=== PATIENT | male | born 1955 | race Caucasian/White ===

== ENCOUNTER 2016-05-08 13:56 | Emergency (ER) | payer SELFPAY ==
[2016-05-08] MEDS ORDERED: NS 0.9% 1000 ML* 1,000 ML IV SCH (14:15)
[2016-05-08 14:25] LABS: Hematocrit 43 % (42-52); Hemoglobin 14.3 g/dl (14.0-18.0); Mean Corpuscular HGB Conc 33 g/dl (31-36); Mean Corpuscular Hemoglobin 30 pg (27-31); Mean Corpuscular Volume 90 fL (80-94); Mean Platelet Volume 9 um3 (7.4-10.4); Red Blood Count 4.83 10^6/ul (4.0-5.4); Red Cell Distribution Width 14 % (10.5-15); White Blood Count 8.6 10^3/ul (3.5-10.8)
[2016-05-08 14:30] VITALS: BP 175/82
[2016-05-08 14:40] LABS: Albumin 4.3 g/dL (3.2-5.2); BUN/Creatinine Ratio 17.6 (8-20); Calcium 9.1 mg/dL (8.6-10.3); EGFR African American 95.8 (>60); EGFR Non-African American 74.5 (>60); Globulin 3.1 g/dL (2-4); Potassium 4.3 mmol/L (3.5-5.0); Total Bilirubin 0.5 mg/dL (0.2-1.0); Total Protein 7.4 g/dL (6.4-8.9)
--- NOTE | 2016-05-08 14:59 | RAD ---
INDICATION: Head injury. COMPARISON: There are no prior studies available for comparison. TECHNIQUE: Contiguous axial sections of the brain were obtained from the skull base to the vertex without contrast. FINDINGS: The ventricles, cisterns and sulci are within normal limits. No significant focal abnormality or mass effect is seen. There is no evidence for hemorrhage. There is focal soft tissue swelling and a hematoma anterior to the left frontal bone measuring 4.9 x 0.8 cm in size. No fracture is seen. There is mildly coastal thickening within the maxillary, ethmoid and sphenoid sinuses consistent with chronic sinusitis. The mastoid air cells appear clear. IMPRESSION: NO EVIDENCE FOR ACUTE INTRACRANIAL ABNORMALITY.
--- NOTE | 2016-05-08 15:06 | RAD ---
Indication: Neck injury after fall CT of the cervical spine was obtained in the axial plane. Sagittal and coronal reconstructed images were obtained. The skull base demonstrates mastoid air cells to be unremarkable. No skull fracture is noted. Atlantoaxial degenerative changes are noted. No fracture is noted. At C2-C3, C3-C4, C4-C5 no disc protrusion is noted. No fracture is identified. At C5-C6 spondylitic ridge flattens the thecal sac. No central or foraminal stenosis is noted. At C6-C7 degenerative disc disease is noted. No central foraminal stenosis is noted. At C7-T1 and T1-T2 the disc protrusion is identified. The lung apices are grossly unremarkable. IMPRESSION: MINIMAL DEGENERATIVE DISC DISEASE AT C5-C6 AND C6-C7 WITHOUT EVIDENCE OF FRACTURE.
[2016-05-08 15:36] LABS: Urine Bacteria Absent (Absent); Urine Bilirubin Negative (Negative); Urine Glucose Negative (Negative); Urine Nitrite Negative (Negative)
--- NOTE | 2016-05-08 15:52 | ED ---
Nando Davies Billy, scribed for Sky Bates MD on 05/08/16 at 1414 . Head Injury - HPI Summary HPI Summary: Patient is a 60 year-old male coming to [facility] for evaluation of a head injury. He states he fell off of a ladder at a height of approximately 6-8 feet at 1200 today. He hit the top and left forehead on the ground. Pain severity 5/10. He also reports right-sided neck pain, c-collar is in place. Denies any visual changes or weakness in the extremities. He took ibuprofen for pain. He has no other complaints at this time. Denies anticoagulant therapy. - History Of Current Complaint Chief Complaint: EDHeadInjury Stated Complaint: FELL OFF LADDER-8FT Time Seen by Provider: 05/08/16 14:12 Hx Obtained From: Patient Mechanism Of Injury: Fall From Height Of: - 6-8 feet Onset/Duration: Started Hours Ago Onset of Pain: Immediate Severity Currently: Moderate Severity Initially: Moderate Pain Intensity: 5 Pain Scale Used: 0-10 Numeric Location of Head Injury: Other: - top and left forehead Aggravating Factor(s): Other: - none Alleviating Factor(s): Other: - none - Allergies/Home Medications Allergies/Adverse Reactions: Allergies Allergy/AdvReac Type Severity Reaction Status Date / Time No Known Allergies Allergy Verified 05/08/16 13:58 PMH/Surg Hx/FS Hx/Imm Hx Endocrine/Hematology History: Denies: Hx Diabetes Cardiovascular History: Reports: Hx Coronary Artery Disease, Hx Hypercholesterolemia, Hx Hypertension - TAKES MEDICATION FOR IT, Hx Myocardial Infarction Denies: Hx Angina, Hx Pacemaker/ICD Respiratory History: Denies: Hx Asthma, Hx Chronic Obstructive Pulmonary Disease (COPD) History: Denies: Hx Renal Disease Musculoskeletal History: Reports: Hx Back Problems - bulging disks, Other Musculoskeletal History - rt foot injury, crush Sensory History: Denies: Hx Hearing Aid Psychiatric History: Denies: Hx Panic Disorder - Surgical History Surgery Procedure, Year, and Place: 01/18/13 QUAD.BYPASS AT [facility]. RT FOOT SURGERY FROM TRAUMA-. LT FINGER Infectious Disease History: No Infectious Disease History: Denies: Traveled Outside the [place] in Last 30 Days - Family History Known Family History: Positive: Cardiac Disease - Social History Alcohol Use: Occasionally Substance Use Type: Reports: None Smoking Status (MU): Former Smoker Type: Cigarettes Length of Time of Smoking/Using Tobacco: 45 years Have You Smoked in the Last Year: No Review of Systems Negative: Fever Negative: Photophobia, Blurred Vision, Diplopia Positive: Other - head and neck pain Positive: Other - head abrasion Negative: Weakness All Other Systems Reviewed And Are Negative: Yes Physical Exam Triage Information Reviewed: Yes Vital Signs On Initial Exam: Initial Vitals Temp Pulse Resp BP Pulse Ox 96.5 F 63 18 168/78 100 05/08/16 13:58 05/08/16 13:58 05/08/16 13:58 05/08/16 13:58 05/08/16 13:58 Vital Signs Reviewed: Yes Appearance: Positive: Well-Appearing, No Pain Distress Skin: Positive: Warm, Skin Color Reflects Adequate Perfusion, Dry Head/Face: Positive: Other - Swelling and abrasions to the top of the head and above left eyebrow. Eyes: Positive: EOMI, WILLIAMS ENT: Positive: Normal ENT inspection Neck: Positive: Other: - C-collar in place Respiratory/Lung Sounds: Positive: Clear to Auscultation, Breath Sounds Present Cardiovascular: Positive: RRR Abdomen Description: Positive: Nontender, Soft Bowel Sounds: Positive: Present Musculoskeletal: Positive: Normal, Strength/ROM Intact Neurological: Positive: Sensory/Motor Intact, Alert, Oriented to Person Place, Time Psychiatric: Positive: Affect/Mood Appropriate AVPU Assessment: Alert Diagnostics - Vital Signs Vital Signs Temp Pulse Resp BP Pulse Ox 05/08/16 13:58 96.5 F 63 18 168/78 100 - Laboratory Lab Results: Lab Results 05/08/16 05/08/16 05/08/16 Range/Units 14:15 14:15 14:15 WBC 8.6 (3.5-10.8) 10^3/ul RBC 4.83 (4.0-5.4) 10^6/ul Hgb 14.3 (14.0-18.0) g/dl Hct 43 (42-52) % MCV 90 (80-94) fL MCH 30 (27-31) pg MCHC 33 (31-36) g/dl RDW 14 (10.5-15) % Plt Count 222 (150-450) 10^3/ul MPV 9 (7.4-10.4) um3 Neut % (Auto) 69.1 (38-83) % Lymph % (Auto) 22.8 L (25-47) % [place] % (Auto) 5.4 (1-9) % Eos % (Auto) 1.6 (0-6) % Baso % (Auto) 1.1 (0-2) % Absolute Neuts (auto) 6.0 (1.5-7.7) 10^3/ul Absolute Lymphs (auto) 2.0 (1.0-4.8) 10^3/ul Absolute Monos (auto) 0.5 (0-0.8) 10^3/ul Absolute Eos (auto) 0.1 (0-0.6) 10^3/ul Absolute Basos (auto) 0.1 (0-0.2) 10^3/ul Absolute Nucleated RBC 0 10^3/ul Nucleated RBC % 0 INR (Anticoag Therapy) 0.97 (0.89-1.11) APTT 30.4 (26.0-36.3) seconds Sodium 132 L (133-145) mmol/L Potassium 4.3 (3.5-5.0) mmol/L Chloride 102 (101-111) mmol/L Carbon Dioxide 23 (22-32) mmol/L Anion Gap 7 (2-11) mmol/L BUN 18 (6-24) mg/dL Creatinine 1.02 (0.67-1.17) mg/dL Est GFR ( Amer) 95.8 (>60) Est GFR (Non-Af Amer) 74.5 (>60) BUN/Creatinine Ratio 17.6 (8-20) Glucose 100 (70-100) mg/dL Calcium 9.1 (8.6-10.3) mg/dL Total Bilirubin 0.50 (0.2-1.0) mg/dL AST 18 (13-39) U/L ALT 20 (7-52) U/L Alkaline Phosphatase 78 (34-104) U/L Total Protein 7.4 (6.4-8.9) g/dL Albumin 4.3 (3.2-5.2) g/dL Globulin 3.1 (2-4) g/dL Albumin/Globulin Ratio 1.4 (1-3) Urine Color Urine Appearance Urine pH (5-9) Ur Specific [place] (1.010-1.030) Urine Protein (Negative) Urine Ketones (Negative) Urine Blood (Negative) Urine Nitrate (Negative) Urine Bilirubin (Negative) Urine Urobilinogen (Negative) Ur Leukocyte Esterase (Negative) Urine WBC (Auto) (Absent) Urine RBC (Auto) (Absent) Urine Bacteria (Absent) Urine Glucose (Negative) 05/08/16 Range/Units 15:20 WBC (3.5-10.8) 10^3/ul RBC (4.0-5.4) 10^6/ul Hgb (14.0-18.0) g/dl Hct (42-52) % MCV (80-94) fL MCH (27-31) pg MCHC (31-36) g/dl RDW (10.5-15) % Plt Count (150-450) 10^3/ul MPV (7.4-10.4) um3 Neut % (Auto) (38-83) % Lymph % (Auto) (25-47) % [place] % (Auto) (1-9) % Eos % (Auto) (0-6) % Baso % (Auto) (0-2) % Absolute Neuts (auto) (1.5-7.7) 10^3/ul Absolute Lymphs (auto) (1.0-4.8) 10^3/ul Absolute Monos (auto) (0-0.8) 10^3/ul Absolute Eos (auto) (0-0.6) 10^3/ul Absolute Basos (auto) (0-0.2) 10^3/ul Absolute Nucleated RBC 10^3/ul Nucleated RBC % INR (Anticoag Therapy) (0.89-1.11) APTT (26.0-36.3) seconds Sodium (133-145) mmol/L Potassium (3.5-5.0) mmol/L Chloride (101-111) mmol/L Carbon Dioxide (22-32) mmol/L Anion Gap (2-11) mmol/L BUN (6-24) mg/dL Creatinine (0.67-1.17) mg/dL Est GFR ( Amer) (>60) Est GFR (Non-Af Amer) (>60) BUN/Creatinine Ratio (8-20) Glucose (70-100) mg/dL Calcium (8.6-10.3) mg/dL Total Bilirubin (0.2-1.0) mg/dL AST (13-39) U/L ALT (7-52) U/L Alkaline Phosphatase (34-104) U/L Total Protein (6.4-8.9) g/dL Albumin (3.2-5.2) g/dL Globulin (2-4) g/dL Albumin/Globulin Ratio (1-3) Urine Color Straw Urine Appearance Clear Urine pH 5.0 (5-9) Ur Specific [place] 1.011 (1.010-1.030) Urine Protein Negative (Negative) Urine Ketones Negative (Negative) Urine Blood Negative (Negative) Urine Nitrate Negative (Negative) Urine Bilirubin Negative (Negative) Urine Urobilinogen Negative (Negative) Ur Leukocyte Esterase 1+ H (Negative) Urine WBC (Auto) Trace(0-5/hpf) (Absent) Urine RBC (Auto) Absent (Absent) Urine Bacteria Absent (Absent) Urine Glucose Negative (Negative) Result Diagrams: 05/08/16 14:15 05/08/16 14:15 Lab Statement: Any lab studies that have been ordered have been reviewed, and results considered in the medical decision making process. - CT c-spine CT Interpretation Completed By: Radiologist - MINIMAL DEGENERATIVE DISC DISEASE AT C5-C6 AND C6-C7 WITHOUT EVIDENCE OF FRACTURE. brain CT Interpretation: No Acute Changes CT Interpretation Completed By: Radiologist Re-Evaluation - Re-Evaluation First Eval Re-Evaluation Time: 15:32 Comment: Labs and imaging reviewed and discussed. Head Injury Course/Dx Assessment/Plan: WELL IN ED. DISCUSSED RESULTS WITH PATIENT. DISCHARGE HOME STABLE. - Diagnoses Provider Diagnoses: Head injury, Cervical strain, Sinusitis Discharge - Discharge Plan Condition: Stable Disposition: HOME Prescriptions: Amoxicillin/Clavulanate TAB* [Augmentin TAB 875*] 875 mg PO BID #20 tab HYDROcodone/ACETAMIN 5-325 MG* [Salix 5-325 TAB*] 1 tab PO Q4H PRN #20 tab MDD 6 PRN Reason: Pain Ondansetron ODT TAB* [Zofran 4 MG Odt TAB*] 4 mg PO Q6H PRN #10 tab.odt PRN Reason: Nausea Patient Education Materials: Head Injury (ED), Cervical Sprain (ED), Sinusitis (ED) Referrals: Jose Lopez MD [Primary Care Provider] - Additional Instructions: FOLLOW UP WITH YOUR DOCTOR. RETURN TO THE EMERGENCY DEPARTMENT FOR ANY WORSENING OF YOUR CONDITION; WEAKNESS , NUMBNESS, DIFFICULTY WITH SPEECH OR VISION OR QUESTIONS OR CONCERNS. The documentation as recorded by the Nando cavanaugh Billy accurately reflects the service I personally performed and the decisions made by me, Sky Bates MD.
== END 2016-05-08 16:08 | disposition home or self-care (01) ==
LOC: ED 13:56
DX: S09.90XA Unspecified injury of head, initial encounter (principal); S13.9XXA Sprain of joints and ligaments of unspecified parts of neck, initial encounter; J32.9 Chronic sinusitis, unspecified; W11.XXXA Fall on and from ladder, initial encounter; Y92.9 Unspecified place or not applicable; I25.10 Atherosclerotic heart disease of native coronary artery without angina pectoris; E78.00 Pure hypercholesterolemia, unspecified; I10 Essential (primary) hypertension; I25.2 Old myocardial infarction; Z87.891 Personal history of nicotine dependence; M50.322 Other cervical disc degeneration at C5-C6 level
CPT/HCPCS: 36415; 70450; 72125; 80053; 81003; 81015; 85025; 85610; 85730; 87086; 96360; 99282

== ENCOUNTER 2017-04-26 10:26 | Emergency (ER) | payer BC ==
--- NOTE | 2017-04-26 11:18 | RAD ---
HISTORY: Palpitation COMPARISONS: March 06, 2013 VIEWS: 1: frontal portable view of the chest at 11:00 AM FINDINGS: LINES AND TUBES: None. CARDIOMEDIASTINAL SILHOUETTE: The cardiomediastinal silhouette is normal for portable technique. PLEURA: The costophrenic angles are sharp. No pleural abnormalities are noted. LUNG PARENCHYMA: The lungs are clear. ABDOMEN: The upper abdomen is clear. There is no subphrenic gas. BONES AND SOFT TISSUES: The patient is status post median sternotomy. IMPRESSION: NO ACTIVE CARDIOPULMONARY DISEASE.
[2017-04-26 11:24] LABS: ABS Basophils 0.1 10^3/ul (0-0.2); ABS Eosinophils 0.2 10^3/ul (0-0.6); ABS Lymphocytes 2.3 10^3/ul (1.0-4.8); ABS Monocytes 0.3 10^3/ul (0-0.8); ABS Neutrophils 4.2 10^3/ul (1.5-7.7); ABS Nucleated RBC 0 10^3/ul; Eosinophil % 3.4 % (0-6); Hematocrit 42 % (42-52); Hemoglobin 14.3 g/dl (14.0-18.0); Lymphocyte % 31.8 % (25-47); Mean Corpuscular HGB Conc 34 g/dl (31-36); Mean Corpuscular Hemoglobin 30 pg (27-31); Mean Corpuscular Volume 89 fL (80-94); Mean Platelet Volume 8 um3 (7.4-10.4); Nucleated Red Blood Cells % 0.1; Platelet Count 226 10^3/ul (150-450); Red Blood Count 4.73 10^6/ul (4.0-5.4); Red Cell Distribution Width 14 % (10.5-15); White Blood Count 7.2 10^3/ul (3.5-10.8)
[2017-04-26 11:31] LABS: INR 0.94 (0.77-1.02)
[2017-04-26 12:02] LABS: EGFR Non-African American 78.7 (>60)
[2017-04-26 14:05] LABS: Urine Appearance Clear; Urine Blood Negative (Negative); Urine Color Straw; Urine Ketones Negative (Negative); Urine Protein Negative (Negative); Urine Specific Gravity 1.011 (1.010-1.030); Urine Urobilinogen Negative (Negative)
[2017-04-26 15:10] VITALS: BP 116/65
--- NOTE | 2017-04-27 16:14 | ED ---
Delano Davies Angela, scribed for Nilton Patel MD on 04/26/17 at 1050 . Palpitations / Dysrhythmia - HPI Summary HPI Summary: This pt is a 61 y/o male presenting [place] [facility] c/o palpitations, heart burn, and nausea since this morning at 03:00. Pt reports he woke up at 03:00 with heart burn and palpitations. He describes palpitations as pounding, irregular, and fluttering. Pt additionally notes some SOB. Denies chest pain. Pt started smoking again. He is followed up by Dr. Wright. Pt had quadruple bypass in 2012 in [place]. He states that prior to his quad, pt was asymptomatic and only felt "odd." - History of Current Complaint Chief Complaint: EDChestPainROMI Time Seen by Provider: 04/26/17 10:34 Hx Obtained From: Patient Onset/Duration: Lasting Hours, Still Present Timing: Constant Severity Currently: Moderate Character: Pounding, Fluttering Aggravating: Nothing Alleviating: Nothing Associated Signs & Symptoms: Shortness of Breath, Nausea - Allergy/Home Medications Allergies/Adverse Reactions: Allergies Allergy/AdvReac Type Severity Reaction Status Date / Time No Known Allergies Allergy Verified 05/08/16 13:58 Home Medications: Home Medications Aspirin EC Low Dose* [Ecotrin EC Low Dose 81 MG*] 81 mg PO DAILY 04/26/17 [ History Confirmed 04/26/17] Ibuprofen TAB* [Advil TAB*] 400 - 600 mg PO DAILY PRN 04/26/17 [History Confirmed 04/26/17] Magnesium Oxide [Magnesium] 500 mg PO DAILY 04/26/17 [History Confirmed 04/26/17 ] PMH/Surg Hx/FS Hx/Imm Hx Endocrine/Hematology History: Denies: Hx Diabetes Cardiovascular History: Reports: Hx Coronary Artery Disease, Hx Embolism - angioplasty right leg, Hx Hypercholesterolemia, Hx Hypertension - TAKES MEDICATION FOR IT, Hx Myocardial Infarction, Other Cardiovascular Problems/ Disorders - Hx angioplasty right leg Denies: Hx Angina, Hx Pacemaker/ICD Respiratory History: Denies: Hx Asthma, Hx Chronic Obstructive Pulmonary Disease (COPD) History: Denies: Hx Renal Disease Musculoskeletal History: Reports: Hx Back Problems - bulging disks, Other Musculoskeletal History - rt foot injury, crush Sensory History: Denies: Hx Hearing Aid Neurological History: Reports: Hx Headaches Psychiatric History: Denies: Hx Panic Disorder - Surgical History Surgery Procedure, Year, and Place: 01/18/13 QUAD.BYPASS AT [facility] 2013. RT FOOT SURGERY FROM TRAUMA-. LT FINGER. right leg angioplasty 2014 Infectious Disease History: No Infectious Disease History: Denies: Traveled Outside the [place] in Last 30 Days - Family History Known Family History: Positive: Cardiac Disease, Diabetes Family History: Father: Leukemia - Social History Alcohol Use: Occasionally Substance Use Type: Reports: None Smoking Status (MU): Heavy Every Day Tobacco Smoker Type: Cigarettes Length of Time of Smoking/Using Tobacco: 45 years Have You Smoked in the Last Year: Yes Review of Systems Negative: Fever, Chills Positive: Palpitations. Negative: Chest Pain Positive: Shortness Of Breath Gastrointestinal: Other - heart burn Positive: Nausea Skin: Negative Neurological: Negative All Other Systems Reviewed And Are Negative: Yes Physical Exam - Summary Physical Exam Summary: VITAL SIGNS: Reviewed. GENERAL: Patient is a well-developed and nourished male who is lying comfortable in the stretcher. Patient is not in any acute respiratory distress. HEAD AND FACE: No signs of trauma. No ecchymosis, hematomas or skull depressions. No sinus tenderness. EYES: PERRLA, EOMI x 2, No injected conjunctiva, no nystagmus. EARS: Hearing grossly intact. Ear canals and tympanic membranes are within normal limits. MOUTH: Oropharynx within normal limits. NECK: Supple, trachea is midline, no adenopathy, no JVD, no carotid bruit, no c- spine tenderness, neck with full ROM. CHEST: Symmetric, no tenderness at palpation LUNGS: Clear to auscultation bilaterally. No wheezing or crackles. CVS: Regular rate and rhythm, S1 and S2 present, no murmurs or gallops appreciated. ABDOMEN: Soft, non-tender. No signs of distention. No rebound no guarding, and no masses palpated. Bowel sounds are normal. EXTREMITIES: FROM in all major joints, no edema, no cyanosis or clubbing. NEURO: Alert and oriented x 3. No acute neurological deficits. Speech is normal and follows commands. SKIN: Dry and warm Triage Information Reviewed: Yes Vital Signs On Initial Exam: Initial Vitals Temp Pulse Resp BP Pulse Ox 97.4 F 55 18 173/83 97 04/26/17 10:36 04/26/17 10:36 04/26/17 10:36 04/26/17 10:36 04/26/17 10:36 Vital Signs Reviewed: Yes Diagnostics - Vital Signs Vital Signs Temp Pulse Resp BP Pulse Ox 04/26/17 10:36 97.4 F 55 18 173/83 97 - Laboratory Result Diagrams: 04/26/17 11:10 04/26/17 11:10 Lab Statement: Any lab studies that have been ordered have been reviewed, and results considered in the medical decision making process. - Radiology Chest XR Xray Interpretation: No Acute Changes - IMPRESSION: No active cardiopulmonary disease. Dr. Patel has reviewed this radiology report. Dr. Patel has reviewed this radiology report. Radiology Interpretation Completed By: Radiologist - EKG 10:39 Cardiac Rate: Bradycardia EKG Rhythm: Sinus Bradycardia - at 55 bpm EKG Interpretation: No ST elevation. Inverted T wave in III. Course/Dx - Course Assessment/Plan: This pt is a 61 y/o male presenting to [facility] c/o palpitations, heart burn, and nausea since this morning at 03:00. Pt reports he woke up at 03: 00 with heart burn and palpitations. He describes palpitations as pounding, irregular, and fluttering. Pt additionally notes some SOB. Denies chest pain. Pt started smoking again. He is followed up by Dr. Wright. Pt had quadruple bypass in 2012 in [place]. He states that prior to his quad, pt was asymptomatic and only felt "odd.". Test results without any significant abnormalities. Two troponins, 4 hours apart, are both 0.0. Urinalysis is negative for UTI. Chest XR: No active cardiopulmonary disease. The pt symptoms have resolved and the pt is currently asymptomatic. Since the test results are within normal limits, I will discharge the pt home with follow up from his PCP. Pt is hemodynamically stable, alert and oriented x3. - Diagnoses Provider Diagnoses: Palpitations Discharge - Discharge Plan Condition: Stable Disposition: HOME Patient Education Materials: Heart Palpitations (ED) Referrals: Jose Lopez MD [Primary Care Provider] - 3 Days Additional Instructions: Please follow up with your primary care provider. RETURN TO THE ED FOR ANY WORSENING SYMPTOMS. The documentation as recorded by the Delano cavanaugh Angela accurately reflects the service I personally performed and the decisions made by me, Nilton Patel MD.
== END 2017-04-26 15:09 | disposition home or self-care (01) ==
LOC: ED 10:26
DX: R00.2 Palpitations (principal); F17.210 Nicotine dependence, cigarettes, uncomplicated; Z95.1 Presence of aortocoronary bypass graft
CPT/HCPCS: 36415; 71045; 80053; 81003; 82550; 82553; 83605; 83735; 83880; 84443; 84484; 85025; 85610; 85730; 93005; 99282

== ENCOUNTER 2019-04-28 17:43 | Emergency (ER) | payer BC ==
--- OUTSIDE RECORDS SUMMARY | 2019-04-28 17:57 | XMS REPORT | Continuity of Care Document ---
:1955 External Reference #:[id number] Author Name Allison Neumann O.D. Address [address] [place] [address] Care Team Providers Name Role Phone Alvina Spangler MD - Internal Medicine Care Team Information Paid Intern Graeme Wright M.D. - Care Team Information Paid Intern [phone] Cardiovascular Disease Problems Active Problems Provider Date Essential hypertension Onset: Arthritis Onset: History of myocardial infarction Onset: Note: 2013 Visual disturbance Allison Neumann O.D. Onset: 03/22/2019 Tear film insufficiency Allison Neumann O.D. Onset: 03/22/2019 Vitreous degeneration Allison Neumann O.D. Onset: 03/22/2019 Combined form of senile cataract Allison Neumann O.D. Onset: 03/22/2019 Social History Type Date Description Comments Sex Unknown ETOH Use Rarely consumes alcohol Tobacco Use Start: Unknown Heavy tobacco smoker (more than 10 cigarettes/day) Recreational Drug Use Denies Drug Use Allergies, Adverse Reactions, Alerts Description No Known Drug Allergies Medications Active Medications SIG Qnty Indications Ordering Provider Date Metoprolol Tartrate Take 1 Tablet By Unknown 50mg Mouth Two Times Tablets Daily Lisinopril Take 1 Tablet By Unknown 5mg Tablets Mouth Every Day Atorvastatin Calcium Take 1 Tablet By Unknown 10mg Mouth Every Day Tablets Piroxicam Take 1 Capsule By Unknown 20mg Capsules Mouth Every Day as Needed Magnesium Oxide Unknown 400mg Tablets Acetaminophen 2 x per day. Unknown 500mg Tablets Immunizations Description No Information Available Vital Signs Description No Information Available Results Description No Information Available Procedures Description No Information Available Medical Devices Description No Information Available Encounters Description No Information Available Assessments Date Code Description Provider 03/22/2019 H25.813 Combined forms of age-related cataract, Allison Neumann O.D. bilateral 03/22/2019 H43.813 Vitreous degeneration, bilateral Allison Neumann O.D. 03/22/2019 H04.123 Dry eye syndrome of bilateral lacrimal Allison Neumann O.D. glands 03/22/2019 H53.8 Other visual disturbances Allison Neumann O.D. Plan of Treatment Future Appointment(s):04/25/2019 2:15 pm - Colten Yi M.D. at [facility], 03/22/2019 - Allison Neumann O.D.H25.813 Combined forms of age- related cataract, bilateralComments:You have been diagnosed with a cataract in both eyes. I cannot improve your vision with glasses. We will schedule an evaluation with Dr. Yi or Dr. Hess for the surgery. We recommend that you write down any questions you have and bring them with you to your appointment so one of the doctors can answer them for you. If you have any questions before your appointment regarding surgery, call and ask for JessicaFollow up:Cataract Evaluation with Dr. HerreraoH43.813 Vitreous degeneration, bilateralComments:You have a Posterior Vitreous Detachment. Please read the pamphlet that was given to you. If you have any changes in your floaters or flashing lights, please contact this office.H04.123 Dry eye syndrome of bilateral lacrimal glandsComments:use artificial tears as neededuse a hot compress for 5-10 minutes once a dayH53.8 Other visual disturbances Functional Status Description No Information Available Mental Status Description No Information Available Referrals Description No Information Available
--- OUTSIDE RECORDS SUMMARY | 2019-04-28 17:57 | XMS REPORT | Continuity of Care Document ---
:1955 External Reference #:[id number] Author Name Colten Yi M.D. Address [address] [place] [address] Care Team Providers Name Role Phone Alvina Spangler MD - Internal Medicine Care Team Information Real Estate Manager Graeme Wright M.D. - Care Team Information Real Estate Manager [phone] Cardiovascular Disease Problems Active Problems Provider Date Essential hypertension Onset: Arthritis Onset: History of myocardial infarction Onset: Note: 2013 Combined form of senile cataract Allison Neumann O.D. Onset: 03/22/2019 Vitreous degeneration Allison Neumann O.D. Onset: 03/22/2019 Tear film insufficiency Allison Neumann O.D. Onset: 03/22/2019 Visual disturbance Allison Neumann O.D. Onset: 03/22/2019 Social History Type Date Description Comments Sex Unknown ETOH Use Rarely consumes alcohol Tobacco Use Start: Unknown Heavy tobacco smoker (more than 10 cigarettes/day) Recreational Drug Use Denies Drug Use Smoking Status Reviewed: 04/25/19 Heavy tobacco smoker (more than 10 cigarettes/day) Allergies, Adverse Reactions, Alerts Description No Known [...] Available Results Description No Information Available Procedures Date Code Description Status 03/22/2019 47421 New Patient Comprehensive Exam Completed Medical Devices Description No Information Available Encounters Description No Information Available Assessments Date Code Description Provider 04/25/2019 H25.813 Combined forms of age-related cataract, Colten Yi M.D. bilateral 04/25/2019 H43.813 Vitreous degeneration, bilateral Colten Yi M.D. 03/22/2019 H25.813 Combined forms of age-related cataract, Allison Neumann O.D. bilateral 03/22/2019 H43.813 Vitreous degeneration, bilateral Allison Neumann O.D. 03/22/2019 H04.123 Dry eye syndrome of bilateral lacrimal Allison Neumann O.D. glands 03/22/2019 H53.8 Other visual disturbances Allison Neumann O.D. Plan of Treatment 04/25/2019 - Colten Yi M.D.H25.813 Combined forms of age-related cataract , bilateralComments:Smoking can increase the risk of developing or worsening any eye related disease, as well as affect your overall health. If you are a smoker, we strongly recommend that you quit.If you are not a smoker, we strongly recommend that you do not start. You have been diagnosed with cataracts. They are limiting your vision, and I am unable to improve you with new glasses. Our next step is to schedule Cataract surgery and all necessary appointments, which Debbie will do for you. We recommend that you write down any questions you may have and bring them to your preoperative appointment so that Dr. Ramirez answer them for you. If you have any questions or concerns, you can reach Debbie Acharya at .Follow up:For preop exam before surgery.H43.813 Vitreous degeneration, bilateralComments:You have a Posterior Vitreous Detachment. If you have any changes in your floaters or flashing lights, please contact this office. Functional Status Description No Information Available Mental Status Description No Information Available Referrals Description No Information Available
[2019-04-28 19:02] LABS: ABS Basophils 0.1 10^3/ul (0-0.2); ABS Eosinophils 0.2 10^3/ul (0-0.6); ABS Lymphocytes 2.2 10^3/ul (1.0-4.8); ABS Monocytes 0.4 10^3/ul (0-0.8); ABS Neutrophils 3.4 10^3/ul (1.5-7.7); Eosinophil % 3.2 %; Hematocrit 40 % (42-52); Hemoglobin 13.7 g/dL (14.0-18.0); Lymphocyte % 34.8 %; Mean Corpuscular HGB Conc 34 g/dL (31-36); Mean Corpuscular Hemoglobin 30 pg (27-31); Mean Corpuscular Volume 90 fL (80-94); Mean Platelet Volume 8.9 fL (7.4-10.4); Nucleated Red Blood Cells % 0.1; Platelet Count 185 10^3/uL (150-450); Red Cell Distribution Width 14 % (10-15); White Blood Count 6.3 10^3/uL (3.5-10.8)
[2019-04-28 19:12] LABS: INR 1.04 (0.82-1.09)
[2019-04-28 19:20] LABS: Albumin 4.2 g/dL (3.2-5.2); Albumin/Globulin Ratio 1.6 (1-3); BUN/Creatinine Ratio 16.3 (8-20); Calcium 8.5 mg/dL (8.6-10.3); EGFR African American 93.5 (>60); EGFR Non-African American 77.2 (>60); Globulin 2.7 g/dL (2-4); Total Bilirubin 0.3 mg/dL (0.2-1.0); Total Protein 6.9 g/dL (6.4-8.9)
[2019-04-28 19:47] LABS: Potassium 3.9 mmol/L (3.5-5.0)
--- NOTE | 2019-04-28 19:57 | ED ---
Shortness of Breath - HPI Summary HPI Summary: This patient is a 63 year old M presenting to [facility] with a chief complaint of shortness of breath since today afternoon. 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 However while working today, his coworkers noticed he was breathing heavily. Then around 1700 today he noticed he was sighing a lot, and felt like his heart was skipping beats. Pt has PMHx of quadruple bypass in 2012. That time he had no pain, and no symptoms but he felt funny so he came into the ED. Then two hours later he went to [facility] for surgery. He also mentioned that when he measured his blood pressure it was different from normal. Pt still smokes. He has no PMHx of asthma , and COPD. But no PMHx of pneumonia. Patient denies fever, cough, sore throat, runny nose, and CP. Despite the pt saying that he didnt have chest pain the time he came in and ended up having a quadruple bypass on 01/17/13, per records he did have arm pain radiating to back and chest. Home Medications Medication Instructions Recorded Confirmed Type Atorvastatin* [Lipitor*] 10 mg PO DAILY 08/04/13 04/26/17 History Lisinopril TAB* [Prinivil TAB 5 5 mg PO DAILY 08/04/13 04/26/17 History MG*] Metoprolol Tartrate TAB* 50 mg PO BID 08/04/13 04/26/17 History [Lopressor TAB*] traMADol TAB* [Ultram*] 50 mg PO QID PRN MDD 200 mg 06/19/16 04/26/17 History Aspirin EC TAB* [Ecotrin EC Low 81 mg PO DAILY 04/26/17 04/26/17 History Dose 81 MG*] Ibuprofen TAB* [Advil TAB*] 400 - 600 mg PO DAILY PRN 04/26/17 04/26/17 History Magnesium Oxide [Magnesium] 500 mg PO DAILY 04/26/17 04/26/17 History - History of Current Complaint Chief Complaint: EDShortnessOfBreath Time Seen by Provider: 04/28/19 19:44 Hx Obtained From: Patient Onset/Duration: Sudden Onset, Still Present Timing: Constant Current Severity: None Dyspnea At: Exertion Aggravating Factors: Nothing Alleviating Factors: Nothing Associated Signs & Symptoms: Negative - Allergy/Home Medications Allergies/Adverse Reactions: Allergies Allergy/AdvReac Type Severity Reaction Status Date / Time No Known Allergies Allergy Verified 04/28/19 17:49 Home Medications: Home Medications Atorvastatin* [Lipitor*] 10 mg PO DAILY 08/04/13 [History Confirmed 04/28/19] Lisinopril TAB* [Prinivil TAB 5 MG*] 5 mg PO DAILY 08/04/13 [History Confirmed 04/28/19] Metoprolol Tartrate TAB* [Lopressor TAB*] 50 mg PO BID 08/04/13 [History Confirmed 04/28/19] Aspirin EC TAB* [Ecotrin EC Low Dose 81 MG*] 81 mg PO DAILY 04/26/17 [History Confirmed 04/28/19] Ibuprofen TAB* [Advil TAB*] 400 - 600 mg PO DAILY PRN 04/26/17 [History Confirmed 04/28/19] Piroxicam CAP* [Feldene CAP*] 20 mg PO DAILY PRN 04/28/19 [History Confirmed 08/11] PMH/Surg Hx/FS Hx/Imm Hx Endocrine/Hematology History: Denies: Hx Diabetes Cardiovascular History: Reports: Hx Coronary Artery Disease, Hx Embolism - angioplasty right leg, Hx Hypercholesterolemia, Hx Hypertension - TAKES MEDICATION FOR IT, Hx Myocardial Infarction, Other Cardiovascular Problems/ Disorders - Hx angioplasty right leg Denies: Hx Angina, Hx Pacemaker/ICD Respiratory History: Denies: Hx Asthma, Hx Chronic Obstructive Pulmonary Disease (COPD) History: Denies: Hx Renal Disease Musculoskeletal History: Reports: Hx Back Problems - bulging disks, Other Musculoskeletal History - rt foot injury, crush Sensory History: Denies: Hx Hearing Aid Neurological History: Reports: Hx Headaches Psychiatric History: Denies: Hx Panic Disorder - Surgical History Surgery Procedure, Year, and Place: 01/18/13 QUAD.BYPASS AT [facility] 2013. RT FOOT SURGERY FROM TRAUMA-. LT FINGER. right leg angioplasty 2014 Infectious Disease History: No Infectious Disease History: Denies: Traveled Outside the [place] in Last 30 Days - Family History Known Family History: Positive: Cardiac Disease, Diabetes Family History: Father: Leukemia - Social History Occupation: Employed Full-time Alcohol Use: Occasionally Substance Use Type: Reports: None Smoking Status (MU): Heavy Every Day Tobacco Smoker Type: Cigarettes Length of Time of Smoking/Using Tobacco: 45 years Have You Smoked in the Last Year: Yes Review of Systems Negative: Fever Negative: Sore Throat, Nasal Discharge Negative: Chest Pain Positive: Shortness Of Breath. Negative: Cough All Other Systems Reviewed And Are Negative: Yes Physical Exam - Summary Physical Exam Summary: Appearance: Well-appearing, Well-nourished, lying in bed comfortably Skin: Warm, dry, no obvious rash Eyes: sclera anicteric, no conjunctival pallor HENT: mucous membranes moist, pharynx appears normal Neck: Supple, nontender Respiratory: Clear to auscultation, no signs of respiratory distress Cardiovascular: Normal S1, S2. No murmurs. Normal distal pulses in tibial and radial bilaterally. Abdomen: Soft, nontender, normal active bowel sounds present Musculoskeletal: Normal, Strength/ROM Intact Neurological: A&Ox3, awake and alert, mentation is normal, speech is fluent and appropriate Psychiatric: affect is normal, does not appear anxious or depressed Triage Information Reviewed: Yes Vital Signs On Initial Exam: Initial Vitals Temp Pulse Resp BP Pulse Ox 97.5 F 69 16 217/83 99 04/28/19 17:46 04/28/19 17:46 04/28/19 17:46 04/28/19 17:46 04/28/19 17:46 Vital Signs Reviewed: Yes Procedures - Sedation Patient Received Moderate/Deep Sedation with Procedure: No Diagnostics - Vital Signs Vital Signs Temp Pulse Resp BP Pulse Ox 04/28/19 17:46 97.5 F 69 16 217/83 99 - Laboratory Lab Results: Lab Results 04/28/19 04/28/19 04/28/19 Range/Units 18:53 18:53 18:53 WBC 6.3 (3.5-10.8) 10^3/uL RBC 4.50 (4.18-5.48) 10^6 /uL Hgb 13.7 L (14.0-18.0) g/dL Hct 40 L (42-52) % MCV 90 (80-94) fL MCH 30 (27-31) pg MCHC 34 (31-36) g/dL RDW 14 (10-15) % Plt Count 185 (150-450) 10^3/uL MPV 8.9 (7.4-10.4) fL Neut % (Auto) 54.4 % Lymph % (Auto) 34.8 % Woodruff % (Auto) 6.4 % Eos % (Auto) 3.2 % Baso % (Auto) 1.2 % Absolute Neuts (auto) 3.4 (1.5-7.7) 10^3/ul Absolute Lymphs (auto) 2.2 (1.0-4.8) 10^3/ul Absolute Monos (auto) 0.4 (0-0.8) 10^3/ul Absolute Eos (auto) 0.2 (0-0.6) 10^3/ul Absolute Basos (auto) 0.1 (0-0.2) 10^3/ul Absolute Nucleated RBC 0.0 10^3/ul Nucleated RBC % 0.1 INR (Anticoag Therapy) 1.04 (0.82-1.09) Sodium 138 (135-145) mmol/L Potassium 3.9 (3.5-5.0) mmol/L Chloride 107 (101-111) mmol/L Carbon Dioxide 22 (22-32) mmol/L Anion Gap 9 (2-11) mmol/L BUN 16 (6-24) mg/dL Creatinine 0.98 (0.67-1.17) mg/dL Est GFR ( Amer) 93.5 (>60) Est GFR (Non-Af Amer) 77.2 (>60) BUN/Creatinine Ratio 16.3 (8-20) Glucose 100 (70-100) mg/dL Calcium 8.5 L (8.6-10.3) mg/dL Total Bilirubin 0.30 (0.2-1.0) mg/dL AST 17 (13-39) U/L ALT 21 (7-52) U/L Alkaline Phosphatase 80 (34-104) U/L Troponin I 0.00 (<0.03) ng/mL Total Protein 6.9 (6.4-8.9) g/dL Albumin 4.2 (3.2-5.2) g/dL Globulin 2.7 (2-4) g/dL Albumin/Globulin Ratio 1.6 (1-3) Result Diagrams: 04/28/19 18:53 04/28/19 18:53 Lab Statement: Any lab studies that have been ordered have been reviewed, and results considered in the medical decision making process. - Radiology CXR Radiology Interpretation Completed By: ED Physician Summary of Radiographic Findings: CXR reveals, per ED physician no acute processes. Pending official radiology report. - EKG 17:50 Cardiac Rate: NL EKG Rhythm: Sinus Rhythm Summary of EKG Findings: An EKG reveals nml NSR at 63 BPM, P waves, QRS complex , and T waves are within normal limits, T waves and intervals are normal, no ischemic changes. This is a normal EKG. This EKG was reviewed and interpreted by an ED Physician. 19:49 Cardiac Rate: Bradycardia EKG Rhythm: Sinus Bradycardia Summary of EKG Findings: An EKG reveals sinus bradycardia at 58 BPM, P waves, QRS complex, and T waves are within normal limits, T waves and intervals are normal, no ischemic changes. This is a normal EKG. This EKG was reviewed and interpreted by an ED Physician. Re-Evaluation - Re-Evaluation First Eval Re-Evaluation Time: 21:02 Comment: Discussed results and plan of care with patient. Course/Dx - Course Course Of Treatment: This patient is a 63 year old M presenting to [facility] with a chief complaint of shortness of breath since today afternoon. 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 However while working today, his coworkers noticed he was breathing heavily. Then around 1700 today he noticed he was sighing a lot, and felt like his heart was skipping beats. Pt has PMHx of quadruple bypass in 2012. That time he had no pain, and no symptoms but he felt funny so he came into the ED. Then two hours later he went to [facility] for surgery. Despite the pt saying that he didnt have chest pain the time he came in and ended up having a quadruple bypass on , per records he did have arm pain radiating to back and chest. Physical Exam Findings are normal. Blood work obtained. Hgb is 13.7, Hct is 40, Calcium is 8.5, and Troponin is 0.00. An EKG reveals NSR at 63 BPM, P waves, QRS complex, and T waves are within normal limits, T waves and intervals are normal , no ischemic changes. This is a normal EKG. This EKG was reviewed and interpreted by an ED Physician. An EKG reveals sinus bradycardia at 58 BPM, P waves, QRS complex, and T waves are within normal limits, T waves and intervals are normal, no ischemic changes. This is a normal EKG. This EKG was reviewed and interpreted by an ED Physician. CXR reveals, per ED physician no acute processes. Patient will be discharged. The patient is agreeable with this plan. - Diagnoses Provider Diagnoses: Dyspnea Discharge ED - Sign-Out/Discharge Documenting (check all that apply): Patient Departure - Discharge - Discharge Plan Condition: Stable Disposition: HOME Patient Education Materials: Dyspnea (ED) Referrals: Alvina Spangler MD [Primary Care Provider] - Additional Instructions: We did not find any evidence of any acute heart problem tonight. Your blood work and chest xray were all ok. What is causing your symptoms is hard to say right now, so rest over the weekend and if you are feeling worse or develop new symptoms we should see you back here. Otherwise you can followup with your regular doctor. - Billing Disposition and Condition Condition: STABLE Disposition: Home - Attestation Statements Document Initiated by Caridad: Yes Documenting Scribe: Oneyda Curran Provider For Whom Caridad is Documenting (Include Credential): Nickolas Zepeda MD Scribe Attestation: Oneyda Davies scribed for Nickolas Zepeda MD on 04/29/19 at 0423. Scribe Documentation Reviewed: Yes Provider Attestation: The documentation as recorded by the Oneyda cavanaugh accurately reflects the service I personally performed and the decisions made by Nickolas newman MD Status of Scribe Document: Viewed
[2019-04-28 21:22] VITALS: BP 136/69
== END 2019-04-28 21:20 | disposition home or self-care (01) ==
LOC: ED 17:43
DX: R06.00 Dyspnea, unspecified (principal); R06.02 Shortness of breath; Z79.82 Long term (current) use of aspirin; I25.10 Atherosclerotic heart disease of native coronary artery without angina pectoris; E78.00 Pure hypercholesterolemia, unspecified; I10 Essential (primary) hypertension; I25.2 Old myocardial infarction; Z95.5 Presence of coronary angioplasty implant and graft; F17.210 Nicotine dependence, cigarettes, uncomplicated
CPT/HCPCS: 36415; 71046; 80053; 84484; 85025; 85610; 93005; 99283